=== PATIENT | female | born 1975 | race Two or more races ===

== ENCOUNTER 2024-12-29 09:24 | Emergency (ER) | payer MEDICAID, SELFPAY ==
[2024-12-29 10:00] VITALS: BP 167/84; PULSE 70; RESP 18; TEMP 37.1; O2SAT 98
--- NOTE | 2024-12-29 10:09 | EKG_ITS ---
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
--- NOTE | 2024-12-29 10:10 | EDNOTE_ITS ---
<Statement entered by Sophia Ludwig MD - 12/29/24 17:34> As co-signing physician, I was present and available for consult prn. I concur with the plan and care as documented by the midlevel provider. ED General RME/HPI General Chief complaint: Arrhythmia/Palpitations Stated complaint: NECK PAIN, PALPITATIONS, HIGH BP Time Seen by Provider: 12/29/24 09:52 Arrival date/time: 12/29/24 09:24 CC: High blood pressure HPI patient comes in initially with a complaint of neck pain but was referred by [facility] for hypertension and palpitations. At the time of initial assessment the patient's blood pressure was 160/80 and the patient had a heart rate of 75 even though she was stating her heart rate was beating fast . Patient denies chest pain shortness of breath or difficulty breathing. Patient is very poor historian and is offering very little information it is taking some time to determine that she was not here for neck pain but really sent over by primary care doctor for workup for hypertension. Related Data Allergies Allergy/AdvReac Type Severity Reaction Status Date / Time No Known Allergies Allergy Verified 12/29/24 09:28 Review of Systems Review of Systems Narrative Review of Systems: GEN: No fever, no chills, no weight loss EYES: No discharge, no visual changes, no pain HEENT: No ear pain, no congestion, no sore throat PULM: No shortness of breath, no cough, no congestion CV: No chest pain, no dyspnea on exertion, no palpitations GI: No nausea, no vomiting, no diarrhea, no pain, no constipation : No frequency, no urgency, no dysuria MUSC/SKEL: No joint pain, no back pain SKIN: No rash PSYCH: No hallucinations, no depression HEME/LYMPH: No easy bleeding or bruising tendencies NEURO: No weakness, no headache Past Medical History Social History SMOKING STATUS: Never smoker ED Exam Narrative Physical exam: [General: Obese not in cot no acute distress Head normocephalic HEENT: Within acceptable limits Neck is supple nontender Chest equal chest rise nontender to palpation Respiratory: Clear to auscultation no wheezes crackles or rubs CV: Rate rhythm is regular no murmurs rubs or clicks Abdomen is distended secondary to body habitus soft nontender no masses positive bowel sounds all 4 quadrants Back: No CVA tenderness no spinous process tenderness from cervical spine thoracic and lumbar spine Skin: Intact no petechiae rash induration ulceration or crepitus Extremities: Moving all extremity against resistance cap refill less than 2 seconds neurosensory intact Neuro: Awake alert oriented x3 Glascow coma 15 no focal deficits] Course Quality Measures none Orders Category Date Time Status EKG (ED ONLY) *Do not use* NOW Care 12/29/24 10:09 Completed EKG (ED Only) Stat Exams 12/29/24 10:09 Draft EKG (ED Only) Stat Exams 12/29/24 10:09 Ordered B-Type Natriuretic Peptide Stat Lab 12/29/24 10:19 Completed CBC Stat Lab 12/29/24 10:19 Completed Comprehensive Metabolic Panel Stat Lab 12/29/24 10:19 Completed Drug Screen,Urine Stat Lab 12/29/24 10:47 Completed LDH (Lactate Dehydrogenase) Stat Lab 12/29/24 10:19 Completed Magnesium Stat Lab 12/29/24 10:19 Completed Partial Thromboplastin Time Stat Lab 12/29/24 10:19 Completed Prothrombin Time with INR Stat Lab 12/29/24 10:19 Completed Troponin I Stat Lab 12/29/24 10:19 Completed Urinalysis Stat Lab 12/29/24 10:47 Completed Vital Signs Vital signs: Vital Signs Temperature 98.7 F 12/29/24 10:00 Pulse Rate 70 12/29/24 10:00 Respiratory Rate 18 12/29/24 10:00 Blood Pressure 167/84 H 12/29/24 10:00 Pulse Oximetry (%) 98 12/29/24 10:00 Oxygen Delivery Method Room Air 12/29/24 10:00 [facility] Patient data External records reviewed:: [facility] previous records Clinical information provided by:: patient Social determinants that could affect healthcare access:: none Patient has the following chronic illnesses:: None How is presenting disease/condition affected by chronic disease/condition?: u neffected by Evaluation data The following diagnostics were reviewed and interpreted by me:: lab results, radiology exam(s) and EKG tracing(s) Lab and/or radiology exams considered but not ordered:: CBC shows no acute leukocytosis mild anemia 11.3 and 35.2 respectively with normal platelets. INR within acceptable limits CMP shows no significant electrolyte imbalances renal impairment transaminitis or T. bili elevation Troponin is negative BNP is negative EKG performed at 10:13 AM shows ventricular rate of 72 IA interval 158 QRS of 78 QTc of 4 5 normal sinus rhythm Interpretation Summary: Palpitation is a sensation no evidence of accelerated heart rate. Medications Medications considered but not ordered:: None Medication administrations:: None Consultations Consultation(s) initiated? (list below): No Diagnosis Differential Diagnosis ED Complaint MDM: ACS VT pneumonia Most likely diagnosis given after review of the tests above:: Palpitations Admission Indicated Admission indicated?: not indicated Explain why admission is indicated or not indicated:: Stable for outpatient follow-up Admission Request Was there a request for admission?: No Disposition Plan Disposition Plan: Discharge Discharge Attestation Discharge Attestation: The patient and all family members were given an opportunity to ask questions and understood the discharge instructions. Discharge instructions specifically effects, indications for sooner follow up or return to the emergency department, and the expected course of current diagnosis. Patient condition: Stable Medical Decision Making Differential Diagnosis Differential Diagnosis: ACS VT pneumonia Lab Data 12/29/24 10:19 12/29/24 10:19 Labs: Lab Results 12/29/24 12/29/24 Range/Units 10:19 10:47 WBC 7.7 (3.6-11.0) Thou/mm3 RBC 4.00 (4.00-5.20) Miln/mm3 Hgb 11.3 L (12.0-16.0) g/dL Hct 35.2 L (36.0-46.0) % MCV 88 (80-100) fL MCH 28.3 (25.0-35.0) pg MCHC 32.1 (31.0-37.0) g/dl RDW Std Deviation 51.1 H (36.4-46.3) fL Plt Count 381 (140-440) Thou/mm3 Neut % (Auto) 75 (37-80) % Lymph % (Auto) 18 (10-50) % [place] % (Auto) 5 (0-12) % Eos % (Auto) 2 (0-10) % Baso % (Auto) 1 (0-2.5) % Neut # (Auto) 5.8 (1.8-7.7) Thou/mm3 Lymph # (Auto) 1.4 (1.0-4.8) Thou/mm3 Peach # (Auto) 0.4 (0.0-0.8) Thou/mm3 Eos # (Auto) 0.1 (0.0-0.5) Thou/mm3 Baso # (Auto) 0.1 (0.0-0.2) Thou/mm3 Immature Gran # (Auto) 0.02 H (0.00-0.00) Thou/mm3 Absolute Nucleated RBC 0.00 (0.00-0.00) Thou/mm3 Immature Gran % 0 (0-0) % Nucleated RBC % 0 (0) /100 WBC PT 10.5 (9.0-12.2) Seconds INR 1.0 (0.9-1.3) APTT 27.5 (22.0-36.0) Seconds Sodium 139 (136-145) mMol/L Potassium 3.9 (3.4-5.1) mMol/L Chloride 108 H (98-107) mMol/L Carbon Dioxide 23.6 (20.0-31.0) mMol/L Anion Gap 7 (7-16) BUN < 5 L (9-23) mg/dL Creatinine 0.7 (0.6-1.3) mg/dL Estim Creat Clear Calc Not Performed. eGFR > 60 (60 - ) See Note BUN/Creatinine Ratio 7 L (12-20) Ratio Glucose 108 H (74-106) mg/dL Calculated Osmolality 275 (275-295) Calcium 9.2 (8.3-10.6) mg/dL Corrected Calcium 9.2 (8.5-10.1) mg/dL Magnesium 2.1 (1.6-2.6) mg/dL Total Bilirubin 0.6 (0.3-1.2) mg/dL AST 21 (0-34) U/L ALT 29 (10-49) U/L Alkaline Phosphatase 60 (46-116) U/L Lactate Dehydrogenase 180 (120-246) U/L Troponin I < 0.020 (0.0-0.045) ng/mL B-Natriuretic Peptide 57 (0-100) pg/mL Total Protein 7.8 (5.7-8.2) gm/dL Albumin 4.5 (3.5-5.0) gm/dL Globulin 3.3 (2.3-3.5) gm/dL Albumin/Globulin Ratio 1.4 (1.2-2.2) Ur Collection Type Clean Catch Urine Color Lt-Yellow (Lt Yel-Yel) Urine Clarity Clear (Clear/Hazy) Urine pH 6.0 (5.0-7.0) Ur Specific [place] 1.011 (1.001-1.035) Urine Protein Negative (Neg - Trace) Urine Glucose (UA) Negative (Negative) Urine Ketones 2+ A (Negative) Urine Blood Trace (Negative) Urine Nitrite Negative (Negative) Urine Bilirubin Negative (Negative) Urine Urobilinogen (Auto) Negative (0.0-1.0) mg/dL Ur Leukocyte Esterase Negative (Negative) Urine RBC 2 (0-3) /hpf Urine WBC 3 (0-5) /hpf Ur Squamous Epith Cells 7 H (0-5) /hpf Urine Bacteria 1+ A (None) Urine Opiates Screen Negative (Negative) Urine Fentanyl Screen Negative (Negative) Ur Barbiturates Screen Negative (Negative) U Amphetamin/Meth Scrn Negative (Negative) U Benzodiazepines Scrn Negative (Negative) U Cocaine Metab Screen Negative (Negative) U Marijuana (THC) Screen Negative (Negative) Discharge Plan Plan Patient Disposition: HOME (Self Care) Patient condition on transfer: Stable Prescriptions/Referrals Referrals: Frank Martinez MD [Physician] - In 1 week No Primary/Family,Physician [Primary Care Provider] - In 1 week Problem List Clinical Impression: Palpitations Patient/Caregiver Discharge Instructions Other Activity Instructions:: All your laboratory results were unremarkable. Education Materials: ED Palpitations Additional Instructions: There are no acute findings in the emergency room please follow-up with your primary care provider Print Language: Greenlandic Stand Alone Forms: Tisha Award Info., Work/School Release, Patient Portal Info Letter TRISTIAN/RADHA Supervising Physician TRISTIAN/RADHA Supervising Physician: Nathalie Diaz ENP
[2024-12-29 10:53] LABS: B-Type Natriuretic Peptide 57 pg/mL (0-100)
[2024-12-29 10:55] LABS: Alanine Aminotransferase 29 U/L (10-49); Albumin, Serum 4.5 gm/dL (3.5-5.0); Albumin/Globulin Ratio 1.4 (1.2-2.2); Alkaline Phosphatase 60 U/L (46-116); Anion Gap 7 (7-16); Aspartate Amino Transferase 21 U/L (0-34); BUN/Creatinine Ratio 7 Ratio (12-20); Basophils # (Auto) 0.1 Thou/mm3 (0.0-0.2); Basophils % (Auto) 1 % (0-2.5); Bilirubin,Total 0.6 mg/dL (0.3-1.2); Blood Urea Nitrogen < 5 mg/dL (9-23); Calcium 9.2 mg/dL (8.3-10.6); Calcium (Corrected) 9.2 mg/dL (8.5-10.1); Carbon Dioxide 23.6 mMol/L (20.0-31.0); Chloride 108 mMol/L (98-107); Creatinine (Component) 0.7 mg/dL (0.6-1.3); Eosinophils # (Auto) 0.1 Thou/mm3 (0.0-0.5); Eosinophils % (Auto) 2 % (0-10); Globulin 3.3 gm/dL (2.3-3.5); Glucose 108 mg/dL (74-106); Hematocrit 35.2 % (36.0-46.0); Hemoglobin 11.3 g/dL (12.0-16.0); Immature Granulocytes % (Auto) 0 % (0-0); Immature Granulocytes Auto 0.02 Thou/mm3 (0.00-0.00); LDH (Lactate Dehydrogenase) 180 U/L (120-246); Lymphocytes # (Auto) 1.4 Thou/mm3 (1.0-4.8); Lymphocytes % (Auto) 18 % (10-50); Magnesium 2.1 mg/dL (1.6-2.6); Mean Corpuscular HGB Conc 32.1 g/dl (31.0-37.0); Mean Corpuscular Hemoglobin 28.3 pg (25.0-35.0); Mean Corpuscular Volume 88 fL (80-100); Monocytes # (Auto) 0.4 Thou/mm3 (0.0-0.8); Monocytes % (Auto) 5 % (0-12); Neutrophils # (Auto) 5.8 Thou/mm3 (1.8-7.7); Neutrophils % (Auto) 75 % (37-80); Nucleated Red Blood Cell % 0 /100 WBC (0); Osmolality,Calculated 275 (275-295); Platelet Count 381 Thou/mm3 (140-440); Potassium 3.9 mMol/L (3.4-5.1); RDW Standard Deviation 51.1 fL (36.4-46.3); Sodium 139 mMol/L (136-145); Total Protein 7.8 gm/dL (5.7-8.2); Troponin I < 0.020 ng/mL (0.0-0.045); White Blood Count 7.7 Thou/mm3 (3.6-11.0); eGFR > 60 See Note
[2024-12-29 11:02] LABS: Collection Type, Urine Clean Catch
[2024-12-29 11:03] LABS: Partial Thromboplastin Time 27.5 Seconds (22.0-36.0); Prothrombin Time 10.5 Seconds (9.0-12.2)
[2024-12-29 11:26] LABS: Amphetamine/Methamp Scrn,U Negative (Negative); Barbiturate Screen,Urine Negative (Negative); Benzodiazepines Screen,Urine Negative (Negative); Benzoylecgonine Screen, Ur Negative (Negative); Fentanyl Screen,Urine Negative (Negative); Opiate Screen,Urine Negative (Negative); THC Screen,Urine Negative (Negative)
[2024-12-29 11:30] LABS: Bacteria,Urine 1+; Bilirubin,Urine Negative (Negative); Blood,Urine Trace (Negative); Clarity,Urine Clear (Clear/Hazy); Color,Urine Lt-Yellow (Lt Yel-Yel); Glucose, Urine Negative (Negative); Ketones,Urine 2+ (Negative); Leukocyte Esterase,Urine Negative (Negative); Nitrite,Urine Negative (Negative); Protein,Urine Negative (Neg - Trace); RBC,Urine 2 /hpf (0-3); Specific Gravity,Urine 1.011 (1.001-1.035); Squamous Epithelial Cell,Urine 7 /hpf (0-5); Urobilinogen,Urine Negative mg/dL (0.0-1.0); WBC,Urine 3 /hpf (0-5)
[2024-12-29 14:16] VITALS: BP 150/86; PULSE 69; RESP 18; TEMP 36.9; O2SAT 100
== END 2024-12-29 15:00 | disposition home or self-care (01) ==
PROVIDERS: Registered Nurse General Practice; Emergency Provider Emergency Medicine
DX: R00.2 Palpitations (principal); I10 Essential (primary) hypertension; M54.2 Cervicalgia
CPT/HCPCS: 36415; 80053; 80307; 81001; 83615; 83735; 83880; 84484; 85025; 85610; 85730; 93005; 99283